=== PATIENT | male | born 1960 | race Caucasian/White ===

== ENCOUNTER 2020-05-08 00:31 | Inpatient (IN) | payer SELFPAY ==
[2020-05-08] VITALS (18 sets, daily range): BP systolic 56–181; BP diastolic 41–119; PULSE 74–115; RESP 13–48; TEMP 35.8–38.4; O2SAT 65–100; BMI 25.5; BMI 25.4
[2020-05-08] MEDS: Sodium Bicarbonate 8.4% 50 ML Syringe 50 MEQ IV (00:35)
[2020-05-08] MEDS: 0.9% Normal Saline 1,000 ML 1000 ML IV (00:40)
[2020-05-08] MEDS: Norepinephrine 8 mg/250 mL 0.9% NS 9.4 MG CONT INF (00:42)
--- NOTE | 2020-05-08 00:54 | CT_ITS ---
We are attempting to reach an attending provider to discuss findings. An addendum with communication details will be sent when the communication is complete. HISTORY: WITNESSED CARDIAC ARREST, NO CPR FOR 10 MINS UNTIL PD ARRIVAL, NO MEDICAL HX, STEMI CALLED IN ED Technique:CT Head or Brain W/O Contrast Injection Number of Images including paperwork:256 Comparison: None available. Findings: CT images of the head were obtained without contrast. There is loss of danielle-white differentiation suggestive of diffuse global edema including in the cerebellum.. Gas is present within the subcutaneous tissues. This is at the skull base, around the left temporomandibular joint, the left masseter muscle, and even deep to the frontal skin superficial to the frontal sinuses. Fluid is present with in the ethmoid air cells on the right frontal sinus.. The brain is atrophic. Calcific ASCVD involves intracranial arteries. No acute intracranial hemorrhage. No acute abnormality of orbits. Middle ear cavities and mastoid air cells are well aerated. Skull is normal. CT/Brain/Head without Contrast IMPRESSION: Edema throughout the brain, both the cerebrum and the cerebellum suggestive of global prolonged ischemia Individualized dose optimization techniques were used for this CT. at 0141 Reported and signed by: Dejon Payne MD Electronically Signed: Dejon Payne MD at 1:40 EDT Tel , Service support ,
--- NOTE | 2020-05-08 00:54 | RAD_ITS ---
STUDY: X-RAY CHEST REASON FOR EXAM: Male, 59 years old. Endotracheal tube and orogastric tube placement., Unresponsive, STEMI. TECHNIQUE: AP portable chest. COMPARISON: None. FINDINGS: Enteric tube tip below left hemidiaphragm at the junction of the gastric cardia and gastric fundus. Consider advancing tube 5 to 7 cm for placement of the gastric fundus. Endotracheal tube tip 6.4 cm above the margarita. cloth laminating supervisor overlies right lung apex. Mild bilateral upper lobe patchy opacities. Blunting of left costophrenic angle compatible with pleural scar versus a small pleural effusion. No pneumothorax. There is borderline cardiomegaly. Normal mediastinum and enedelia. Normal visualized pulmonary arteries. Normal visualized aortic arch and descending thoracic aorta. Normal visualized thoracic spine. Normal visualized ribs, clavicles, and shoulders. There is no demonstrated abnormality of the visualized soft tissue structures of the upper abdomen. RAD/Chest 1 View (Portable) IMPRESSION: Endotracheal tube tip in the expected location. Enteric tube tip at the junction of the gastric cardia and fundus. Consider advancing tube 5 to 7 cm for placement in the gastric fundus as desired. Upper lobe opacities suggestive of pneumonia or mild vascular congestion. Small left pleural effusion versus pleural scar. Electronically Signed: Austin Lee MD at 1:39 EDT , Service support ,
--- NOTE | 2020-05-08 00:54 | EKG12_ITS ---
Test Reason : CPR Blood Pressure : / mmHG Vent. Rate : 088 BPM Atrial Rate : 094 BPM P-R Int : 000 ms QRS Dur : 162 ms QT Int : 420 ms P-R-T Axes : 000 107 017 degrees QTc Int : 508 ms Wide Complex Rhythm Right bundle branch block ST elevation consider inferior injury or acute infarct Consider right ventricular involvement in acute inferior infarct Abnormal ECG Confirmed by ARCELIA MCKINLEY ([id number]), associate entertainment editor YAMILET MONTE ([id number]) on 05/09/2020 11:44:21 AM Referred By: AGUSTÍN Confirmed By:ARCELIA MCKINLEY
--- NOTE | 2020-05-08 00:59 | ED.VIS.GEN ---
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 Patient was found unresponsive by his . She immediately called 911 but did not perform bystander CPR. When police arrived patient was found to be in V. fib. He was shocked twice. He eventually went into PEA with bradycardia. Patient had [place] but then eventually bradycardia down and had PEA again. Patient received a total of 4 doses of epinephrine and a left humeral IO was placed in field. When patient arrived patient is in a wide-complex sinus rhythm. I gel is in place. He has no purposeful movements. reports that tonight was a normal evening. They went to bed around 10:00. He was working on his boat. Patient was in bed when heard him breathing funny which caused him to check on him. It sound like patient was having agonal respirations. That is when she called 911. does state that patient said that if his heart were to stop he would want to be brought back. states that should his heart start again he would she would not like further CPR. Past Medical History - Allergies and Home Meds Allergies/Adverse Reactions: Allergies No Known Allergies Allergy (Verified 05/08/20 00:56) Past Medical History: None Surgical History: no surgical history Lives: Spouse/ Significant Other, With Family Smoking Status: Current every day smoker Alcohol: None Drugs: None - Family History Maternal Family History: Reports: Heart Disease Paternal Family History: Reports: Heart Disease Review of Systems ROS: Unable to Obtain Physical Exam Vital Signs/Narrative: Vital Signs Temp Pulse Resp BP Pulse Ox 05/08/20 00:50 148/99 H 05/08/20 00:48 56/41 L 05/08/20 00:42 96.5 F L 74 14 105/61 100 05/08/20 00:37 90 105/61 05/08/20 00:33 96.5 F L 96 13 99 Inital Vital Signs reviewed: Yes General: Well nourished, Well developed, No Acute Distress Head: Normocephalic, Atraumatic Eyes: - - Pupils mid fixed and dilated ENT: Moist mucous membranes, No rhinorrhea Neck: Supple, Nontender Cardiovascular: Regular rate, Regular rhythm, No murmurs Respiratory: CTA bilaterally, Chest nontender, - - No spontaneous respirations. Bilateral breath sounds with bagging. Abdomen: Soft, Nondistended, Normal bowel sounds, No masses Back: Nontender, Normal Inspection Extremities: Nontender, No edema Skin: Normal color, No rash Neurological: Coma, - - Patient is obtunded with no purposeful movements. GCS was 3 Diagnostic/Tx/Re-eval Chest X-Ray - ED: 1 View, Read by ED Physician, Read by Radiologist Clinical Impression(s) from Imaging Studies Brain CT 05/08/20 00:54 IMPRESSION: Edema throughout the brain, both the cerebrum and the cerebellum suggestive of global prolonged ischemia Individualized dose optimization techniques were used for this CT. at 0141 Reported and signed by: Dejon Payne MD Electronically Signed: Dejon Payne MD at 1:40 EDT Tel , Service support , ADDENDUM: 05/08/20 0152 IMPRESSION: Edema throughout the brain, both the cerebrum and the cerebellum suggestive of global prolonged ischemia Individualized dose optimization techniques were used for this CT. at 0141 Reported and signed by: Dejon Payne MD N.B. : The above information has been verbally conveyed by Dejon Payne MD to Dr. Melanie Villanueva MD, on 05/08/2020 01:45:02 (ET). Electronically Signed: Dejon Payne MD at 1:40 EDT Tel , Service support , Chest X-Ray 05/08/20 00:54 IMPRESSION: Endotracheal tube tip in the expected location. Enteric tube tip at the junction of the gastric cardia and fundus. Consider advancing tube 5 to 7 cm for placement in the gastric fundus as desired. Upper lobe opacities suggestive of pneumonia or mild vascular congestion. Small left pleural effusion versus pleural scar. Electronically Signed: Austin Lee MD at 1:39 EDT , Service support , Laboratory Data 05/08/20 05/08/20 05/08/20 00:30 00:30 00:30 WBC 13.2 H RBC 4.30 L Hgb 13.2 Hct 44.8 MCV 104.2 H MCH 30.7 MCHC 29.5 L RDW Std Deviation 48.0 H RDW Coeff of Vee 12.4 Plt Count 186 MPV 8.8 Neut % (Auto) Not Reportable Absolute Neuts (auto) 4.2 Absolute Lymphs (auto) 7.65 H Neutrophils % (Manual) 24 L Band Neutrophils % 8 H Lymphocytes % (Manual) 58 H Monocytes % (Manual) 5 Eosinophils % (Manual) 1 Metamyelocytes % 3 H Myelocytes % 1 H Diff Path Review May foll Atypical Lymphocytes 2+ Platelet Estimate ADEQUATE RBC Morphology NORM C+C PT 17.5 H INR 1.5 APTT 57.4 H Sodium 142 Potassium 3.5 Chloride 108 H Carbon Dioxide 21.0 Anion Gap 13 BUN 11 Creatinine 1.69 H Estim Creat Clear Calc 47.39 Est GFR (MDRD) Af Amer 53 L Est GFR (MDRD) Non-Af 44 L BUN/Creatinine Ratio 6.5 L Glucose 348 H Lactic Acid Calcium 7.6 L Total Bilirubin 0.20 AST 109 H ALT 76 H Alkaline Phosphatase 91 Troponin I 1.670 H* Total Protein 5.5 L Albumin 2.6 L Globulin 2.9 Albumin/Globulin Ratio 0.9 Urine Color Urine Clarity Urine pH Ur Specific [place] Urine Protein Urine Glucose (UA) Urine Ketones Urine Occult Blood Urine Nitrite Urine Bilirubin Urine Urobilinogen Ur Leukocyte Esterase Urine RBC Urine WBC Ur Squamous Epith Cells Amorphous Sediment Urine Bacteria Urine Mucus 05/08/20 05/08/20 00:30 00:45 WBC RBC Hgb Hct MCV MCH MCHC RDW Std Deviation RDW Coeff of Vee Plt Count MPV Neut % (Auto) Absolute Neuts (auto) Absolute Lymphs (auto) Neutrophils % (Manual) Band Neutrophils % Lymphocytes % (Manual) Monocytes % (Manual) Eosinophils % (Manual) Metamyelocytes % Myelocytes % Diff Path Review Atypical Lymphocytes Platelet Estimate RBC Morphology PT INR APTT Sodium Potassium Chloride Carbon Dioxide Anion Gap BUN Creatinine Estim Creat Clear Calc Est GFR (MDRD) Af Amer Est GFR (MDRD) Non-Af BUN/Creatinine Ratio Glucose Lactic Acid 10.3 H* Calcium Total Bilirubin AST ALT Alkaline Phosphatase Troponin I Total Protein Albumin Globulin Albumin/Globulin Ratio Urine Color Yellow Urine Clarity Sl. Cloudy Urine pH 5.0 Ur Specific [place] 1.025 Urine Protein 15 H Urine Glucose (UA) Normal Urine Ketones 5 H Urine Occult Blood 150 H Urine Nitrite Negative Urine Bilirubin Negative Urine Urobilinogen Normal Ur Leukocyte Esterase 25 H Urine RBC 10-25 SEEN Urine WBC 10-25 SEEN Ur Squamous Epith Cells 0 SEEN Amorphous Sediment 2+ Urine Bacteria 0 SEEN Urine Mucus 0 SEEN - Rhythm Strip Rhythm Strip: Sinus Rhythm Rate: 88 Ectopy: None - EKG Initial EKG Interpretation: Junctional - , Junctional rhythm at a rate of 88 ST elevations in inferior leads with reciprocal changes in the precordial leads consistent with a STEMI QRS 162 QTc 508, - Prior: Changed - Medical Decision Making Patient arrives after cardiac arrest with prolonged downtime. Patient had approximately 10 minutes of downtime from when the noticed that he was not breathing without CPR. Patient then had about 30 minutes of ACLS with intermittent [place] prior to arrival. On arrival patient is an junctional/sinus rhythm. EKG does show a STEMI. STEMI is called and case is discussed with cardiology on-call, Dr. Pitts. EKGs are reviewed. Given patient's prolonged downtime as well as poor neurologic exam right now the concern is that patient has anoxic brain injury and would not recover. Based on this, cardiology would not like to activate the Senior Integration Developer. Recommendation is for head CT and if that is negative, IV heparin and aspirin. Patient is intubated for airway management. On arrival patient does have intermittent hypotensive and bradycardia that requires a push dose of epinephrine. He received 2 0.1 mg doses of push dose epinephrine. Patient responded well to this. He started on a Levophed drip peripherally. Troponin is elevated consistent with ACS. Patient is a significantly elevated lactic acid which is consistent with a likely prolonged ischemia. CT of the brain shows global edema highly consistent with anoxic brain injury. Discussed at length with the patient's and children likely prognosis. They state he would never want a be like this and would like to terminally extubate. Given the patient's very poor prognosis I think this is a very reasonable course of action. Patient is terminally extubated in the emergency room. Levophed is turned off. Patient does have hypoxia after this but continues to have heart rate and pulse. He does not have any purposeful movements. He continues to have a GCS of 3. Patient is monitored for some time and eventually hospice is consulted. They evaluate him in the ER. They agree that he is very appropriate for hospice care but worried that he is too unstable and might in route to inpatient hospice. They would request that he be admitted to the hospital service. Discussed with hospitalist who is agreeable to this. Throughout this process patient is given aliquots of morphine as well as a dose of Robinol for comfort. Prior to going upstairs patient is also given Ativan. Family is aware that despite patient having spontaneous heart rate and sonorous respirations, his potential for any neurologic improvement is incredibly unlikely. They repeatedly state that he would not want a live this way and that is why they have made the decision to continue through with palliative care. - Critical Care Time Critical care time (excluding procedures): 75-104 minutes, Discussing w/Patient &/or Family/Bobcat Driver/Labor, Discussing w/Consultants, Performing Direct Patient Care at Bedside - Patient arrives status post cardiac arrest. He is found to have a STEMI. STEMI alert is called and after discussion at length with cardiology, patient felt not to be a candidate of the Senior Integration Developer due to likely poor neurologic outcomes. 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 He is terminally extubated. Patient does not and I then have to consult hospice care as well as discussed with hospitalist. Patient is ultimately admitted to the hospital service. Procedures Procedure(s): Intubation. Patient preoxygenated with I gel. He had no gag reflex. No medication needed. 4-[address] an 8-0 ET tube with direct visualization. 24 cm at the lip. Patient had no desaturations. Patient of bilateral breath sounds as well as color change with end-tidal CO2. No complications. Chest x-ray confirms placement. ED Disposition - Plan for ED Patient: Disposition: Acute Care Hospital [facility] Diagnosis: Cardiac arrest, STEMI (ST elevation myocardial infarction), Anoxic brain injury
[2020-05-08] MEDS: 0.9% Normal Saline 1,000 ML 999 ML IV (01:00)
[2020-05-08 01:01] LABS: Hematocrit 44.8 % (40-54); Hemoglobin 13.2 g/dL (13.0-16.5); Mean Corp Hgb Conc 29.5 g/dL (32-36); Mean Corpuscular Hgb 30.7 pg (27.0-32.0); Mean Corpuscular Volume 104.2 fL (80-94); Mean Platelet Vol. 8.8 fl (6.2-12.0); POSITIVE COUNT YES; POSITIVE DIFFERENTIAL YES; POSITIVE MORPHOLOGY YES; Platelet Count 186 K/mm3 (150-450); RBC Distribution Width CV 12.4 % (11.6-14.6); White Blood Count 13.2 K/mm3 (4.4-11.0)
[2020-05-08 01:02] LABS: Bacteria 0 SEEN /hpf (None Seen); Mucous, Urine 0 SEEN /hpf (<or=2+); Squamous Epithelial Cells - UA 0 SEEN /hpf (0-5)
[2020-05-08 01:03] LABS: Color, Urine Yellow (Yellow); Glucose, Dipstick Normal (Normal); Ketone-Dipstick 5 mg/dl (Negative); Leukocyte Esterase-Dipstick 25 /ul (Negative); Nitrite-Dipstick Negative (Negative); Occult Blood-Urine 150 /ul (Negative); Protein-Dipstick 15 mg/dl (Negative); Specific Gravity, Urine 1.025 (1.002-1.030); Urine Bilirubin Dipstick Negative (Negative); Urine Clarity Sl. Cloudy (Clear); Urine Urobilinogen Normal (Normal)
[2020-05-08 01:05] LABS: Differential Indicated MANUAL DIFF
[2020-05-08 01:10] LABS: International Normalized Ratio 1.5; Prothrombin Time (Protime)PT. 17.5 SECONDS (11.7-14.9)
[2020-05-08 01:11] LABS: Partial Thromboplast Time 57.4 Seconds (24.1-36.2)
[2020-05-08 01:16] LABS: Amorphous Sediment 2+; Red Blood Cells-Urine 10-25 SEEN /hpf (0-5); White Blood Cells 10-25 SEEN /hpf (0-5)
--- NOTE | 2020-05-08 01:17 | HP.PCM_ITS ---
Problem List (1) Cardiac arrest Status: Acute (2) STEMI (ST elevation myocardial infarction) Status: Acute History of Present Illness Date of Admission: 05/08/20 Chief Complaint: cardiac arrest The patient is a 59 year old M with no known medical history who presented to the emergency department with cardiac arrest. Reportedly patient had agonal breathing while sleeping on his bed. He was unresponsive. His shook him but patient continued to be unresponsive. Reportedly patient was in cardiac arrest. CPR with defibrillation and epinephrine was given at the field. Patient was emergently intubated at emergency department. ILENE SHERMAN was called at emergency department. Patient was found to be in ST elevation at the emergency department. History was taken from patient's and family since patient is comatose. Past Medical History Medical History: Medical History (Last Updated 05/08/20 @ 01:[address] Srinath Rubio MD) Denies any medical history (Acute) Allergies No Known Allergies Allergy (Verified 05/08/20 00:56) Home Medications: Ambulatory Orders Medication Instructions Recorded NK 05/08/20 Surgical History: - - Back surgery Lives: Spouse/ Significant Other, With Family Smoking Status: Current every day smoker Tobacco Use: Cigarettes Alcohol: None Drugs: None - *Family History Maternal History Items: Heart Disease Paternal History Items: Heart Disease Review of Systems Constitutional: Denies: Chills, Fever, Weight Change HEENT: Denies: Head Aches, Sinus Congestion, Sinus Drainage Cardiovascular: Denies: Chest Pain, Palpitations Respiratory: Denies: Cough, Shortness of breath at rest, Sputum production Gastrointestinal: Denies: Abdominal Pain, Nausea, Vomiting Genitourinary: Denies: Dysuria Musculoskeletal: Denies: Joint Pain, Joint Tenderness Skin: Denies: Rash, Wounds Neurological: Denies: Numbness, Tingling, Focal weakness Psychiatric: Denies: Anxiety, Depression, Homicidal Ideations, Suicidal Ideations Hematologic/ Lymphatic: Denies: Easy Bruising, Easy Bleeding VTE Information - Inpt Only VTE Present on Admission: No VTE Mechan Device Prophylaxis: SCD's VTE Pharm Prophylaxis ordered?: No Patient Problems: Active and Suspected Problems (Last Updated 05/08/20 @ 01:[address] Srinath Rubio MD) Cardiac arrest (Acute) STEMI (ST elevation myocardial infarction) (Acute) Denies any medical history (Acute) - Physical Exam Vitals/I&O's: Vital Signs Temp Pulse Resp BP Pulse Ox 96.5 F L 74 14 148/99 H 100 05/08/20 00:42 05/08/20 00:42 05/08/20 00:42 05/08/20 00:50 05/08/20 00:42 Oxygen Delivery Method Ambu-Bag Weight: 80.7 kg Body Mass Index (BMI) 25.5 Intake and Output for Last 24 Hours 05/06/20 05/07/20 05/08/20 23:59 23:59 23:59 Intake Total 0.94 / 0.94 Balance 0.94 / 0.94 General: - - Comatose HEENT: Atraumatic, Normocephalic, - - Fixed pupils; not reactive to light. Neck: Trachea Midline, - - ET tube in throat. Lungs: No wheeze, - - Ventilator respiration. Cardiovascular: Tachycardic, - - Diminished breath sounds Abdomen: Bowel Sounds Present, Soft Extremities: No edema, Peripheral Pulses Normal Skin: No rashes, No breakdown Musculoskeletal: No Muscle Wasting Neurological: - - Comatose; gag reflex present. Fixed and dilated pupils. Psych/Mental Status: - - Comatose Laboratory Results 05/08/20 00:30: WBC 13.2 H, RBC 4.30 L, Hgb 13.2, Hct 44.8, MCV 104.2 H, MCH 30.7, MCHC 29.5 L, RDW Std Deviation 48.0 H, RDW Coeff of Vee 12.4, Plt Count 186, MPV 8.8, Neut % (Auto) Not Reportable, Absolute Neuts (auto) Pending 05/08/20 00:30: Sodium Pending, Potassium Pending, Chloride Pending, Carbon Dioxide Pending, Anion Gap Pending, BUN Pending, Creatinine Pending, Est GFR (MDRD) Af Amer Pending, Est GFR (MDRD) Non-Af Pending, BUN/Creatinine Ratio Pending, Glucose Pending, Calcium Pending, Total Bilirubin Pending, AST Pending, ALT Pending, Alkaline Phosphatase Pending, Troponin I Pending, Total Protein Pending, Albumin Pending 05/08/20 00:30: PT 17.5 H, INR 1.5, APTT 57.4 H 05/08/20 00:30: Lactic Acid Pending 05/08/20 00:45: Urine Color Yellow, Urine Clarity Sl. Cloudy, Urine pH 5.0, Ur Specific [place] 1.025, Urine Protein 15 H, Urine Glucose (UA) Normal, Urine Ketones 5 H, Urine Occult Blood 150 H, Urine Nitrite Negative, Urine Bilirubin Negative, Urine Urobilinogen Normal, Ur Leukocyte Esterase 25 H, Urine RBC 10-25 SEEN, Urine WBC 10-25 SEEN, Ur Squamous Epith Cells 0 SEEN, Amorphous Sediment 2+, Urine Bacteria 0 SEEN, Urine Mucus 0 SEEN Current Medications Norepinephrine Bitartrate 8 mg (/ Sodium Chloride) 250 mls @ 9.375 mls/hr CONT INF .[id number] SAVANNAH; Protocol Last Titration: 05/08/20 00:48 Dose: 10 mcg/min, 18.8 mls/hr Documented by: Sodium Chloride () 1,000 mls @ 1,000 mls/hr IV .Q1H ONE Stop: 05/08/20 01:53 Last Admin: 05/08/20 00:40 Dose: 1,000 mls/hr Documented by: Assessment/Plan All Active Problems (Last Updated 05/08/20 @ 01:[address] Srinath Rubio MD) Cardiac arrest (Acute) STEMI (ST elevation myocardial infarction) (Acute) Denies any medical history (Acute) The patient is a 59 year old M with no known medical history who presented to the emergency department with cardiac arrest ST elevation [place]. Cardiac arrest and STEMI Emergent department doctor discussed the case with a web services manager. Emergency department doctor reported that PER cardiology recommendation patient will not be taken to cardiac cath at this time. Plans to get a head CT and if there is no head bleed patient be started on aspirin and heparin drip and will be admitted to the intensive care unit. Inpatient cardiology consultation and wastewater plant operator consultation placed Serial cardiac enzymes ordered. Check magnesium and phosphorus. Check lipid panel. Lipitor ordered. Follow liver enzymes. Check A1c. Placed on vent at emergency department. Patient will remain on the vent. However per family the patient will now wants repeat CPR and re-intubation if extubated. Pepcid for GI prophylaxis. Continue Levophed. Tobacco abuse Complicates care. If patient is able to make it consider tobacco cessation. DVT prophylaxis SCD for now. If CT head is unremarkable will start patient on heparin drip for elevation [place]. Inpatient E&M: [id number] Init Hosp L3
[2020-05-08 01:40] LABS: ALB/GLOB Ratio 0.9 RATIO (0.9-2.4); AST(SGOT) 109 U/L (15-37); Alanine Aminotransfer ALT/SGPT 76 U/L (16-61); Albumin, Serum 2.6 g/dL (3.2-5.0); Alkaline Phosphatase 91 U/L (45-117); Anion Gap 13 (5-15); BUN 11 mg/dL (7-18); BUN/Creat Ratio 6.5 RATIO (10-20); Calcium,Total 7.6 mg/dL (8.5-10.1); Chloride 108 mmol/L (98-107); Creatinine, Serum 1.69 mg/dL (0.70-1.30); EST Glomerular Filtration Rate 44 mL/min (>60); Est Glom Filt Rate - Afr Amer 53 mL/min (>60); Estimated Creatinine Clearance 47.39 ml/min; Globulin 2.9 g/dL (2.2-4.2); Glucose 348 mg/dL (74-106); Lactic Acid 10.3 mmol/L (0.4-1.9); Potassium 3.5 mmol/L (3.5-5.1); Protein, Total 5.5 g/dL (6.4-8.2); Sodium Level 142 mmol/L (136-145)
--- NOTE | 2020-05-08 01:52 | ED.RN ---
MD administered 0.1 mg of IV epinephrine at 0036 and 0046.
--- NOTE | 2020-05-08 01:53 | ED.RN ---
talking with family members in room. explaining the events, test results and options. Support provided.
[2020-05-08 02:00] LABS: Eosinophil 1 % (0-5); Lymphocyte 58 % (19-41); Metamyelocyte 3 % (0-1); Monocyte 5 % (0-10); Myelocyte 1 (0-0); Neutrophil-Band 8 % (0-5); Neutrophil-Segmented 24 % (47-70)
[2020-05-08 02:04] LABS: Atypical Lymphocyte 2+ %; Platelet Estimate ADEQUATE (ADEQ)
[2020-05-08 02:05] LABS: Red Cell Morphology NORM C+C NORMAL (NORM C&C)
[2020-05-08 02:07] LABS: Absolute Neutrophil Count 4.2 X10^3/uL (2.0-7.7)
[2020-05-08 02:08] LABS: Absolute Lymphocyte Count 7.65 X10^3/uL (0.83-4.51); Lymphocyte # 7.65 X10^3/ul (4.0)
[2020-05-08] MEDS: Morphine 2 MG/ML Syringe IV ×2 (02:33→03:50)
--- NOTE | 2020-05-08 02:42 | ED.RN ---
pt extubated at 0240 by Rubia respiratory therapist. Spoke with MD for order for Robinul for secretions. Pharmacy will be sending up stat.
--- NOTE | 2020-05-08 02:45 | CPS ---
pt terminally extubated at [address]anueva's order
[2020-05-08] MEDS: Glycopyrrolate 0.2 MG/ML Vial 0.1 MG IV (02:48)
[2020-05-08 03:48] LABS: Cholesterol 127 mg/dL (200); High Density Lipoprotein 31 mg/dL; Phosphorus 10.1 mg/dL (2.5-4.9); Triglycerides 135 mg/dL; Very Low Density Lipoprotein 27 mg/dL (5-40)
[2020-05-08] MEDS: Morphine 4 MG/ML Syringe IV ×2 (04:33→06:49)
[2020-05-08 04:56] LABS: Reflex Lactate? Y
[2020-05-08] MEDS: LORazepam 2 MG/ML Syringe 0.5 MG IV (06:59)
[2020-05-08 07:09] LABS: Hemoglobin A1c 5.5 % (3.8-5.6)
[2020-05-08] MEDS: LORazepam 2 MG/ML Syringe IV ×2 (09:05→13:08)
[2020-05-08] MEDS: Atropine Sulfate 1% 2 ml Bottle 4 DRP PO ×2 (09:06→11:52)
[2020-05-08] MEDS: morphine 10 MG/ML Syringe 6 MG IV ×2 (09:07→11:13)
--- NOTE | 2020-05-08 09:28 | CASEMGMT ---
Social Work Note Pt terminally extubated this morning. SW in to speak with pt's family. Pt's present in room. SW introduced self and role at [facility]. SW provided support. SW informed pt's that if she needs any additional support or resources to let staff know and this worker can return. SW to remain available for support if needed. Saloni Suárez CLASP MACHINE OPERATOR, FOAM RUBBER CURER
[2020-05-08] MEDS: 0.9% Saline Lock 10 ML Syringe IV ×2 (11:13→13:08)
[2020-05-08] MEDS: Acetaminophen 650 MG Suppository RECTAL (12:56)
--- NOTE | 2020-05-08 14:35 | NURSING ---
Pt 1434 this date confirmed with two RNs, this nurse and Emili RN. Family at bedside. updated. See chart for paperwork.
--- NOTE | 2020-05-08 15:09 | NURSING ---
[facility] was called to provide patient information, they requested we call them back when the family has left. family stepped out for a time but said they would be back. called [facility] to notify them that family was away from bedside but would return as they seemed to want to stay with patient until the home was present. also verified that we could remove peripheral IV sites.
--- NOTE | 2020-05-08 15:57 | PCM.DEATH ---
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 Srinath Rubio MD) Cardiac arrest (Acute) STEMI (ST elevation myocardial infarction) (Acute) Anoxic brain injury (Acute) Denies any medical history (Acute) Hospital Course This 59-year-old white male was brought into the emergency room at [facility] by squad after his found him in there bed with agonal respirations after he had gone to bed approximately 10 PM on 05/07/2020. She called 911, she did not institute any CPR, when police arrived the patient was found to be in V. fib, he was shocked twice but eventually went into PEA with bradycardia. Patient was given multiple doses of epinephrine and a left humeral interosseous IV was placed in the field. When the patient arrived in the emergency room at [facility], he was noted to be in a wide-complex sinus rhythm, he had no purposeful movements. Work-up in the emergency room included an EKG which showed a wide complex rhythm-this was initially felt to also show a STEMI pattern in the inferior wall leads however, I talked with cardiology today and they felt that the patient did not have a STEMI. Labs showed an elevated troponin, there is also a significantly elevated lactic acid. CT of the brain was performed which showed evidence of edema throughout the brain in both the cerebrum and cerebellum suggestive of global prolonged ischemia. Conversations were carried out with the patient's family in the emergency room and family requested the patient be terminally extubated. Discussions were carried out with hospice but due to the fact the patient was felt to be unstable and likely to quickly, it was felt that hospice was not appropriate. Patient was admitted to [facility], I had discussions with the patient's family who were in the room and morphine IV and Ativan IV was administered for patient comfort. On 05/08/2020, patient was seen and examined-at 1435 the patient was noted to have no respirations, no heart rate, and did not respond to any stimuli. Patient was pronounced at that time, family did not request an autopsy to be performed. It was felt that the cause of the patient's was anoxic brain injury from prolonged hypoxia due to a cardiac arrhythmia. OBSV E&M: [id number] Observ/hosp same date L3
--- NOTE | 2020-05-08 15:58 | NURSING ---
patient received 0ml of IV fluids in the last hour of life.
[2020-05-09 10:26] LABS: Pathologist Review Reviewed
== END 2020-05-08 17:38 | DRG 309 ==
LOC: ED 00:54 → ICU 02:56 → MS3 06:59
PROVIDERS: Admitting Provider Hospitalist; Emergency Provider Emergency Medicine; Visit Provider Internal Medicine
DX: I49.9 Cardiac arrhythmia, unspecified (principal); G93.1 Anoxic brain damage, not elsewhere classified; I46.2 Cardiac arrest due to underlying cardiac condition; R40.2430 Glasgow coma scale score 3-8, unspecified time; F17.210 Nicotine dependence, cigarettes, uncomplicated
CPT/HCPCS: 31500; 51702; 70450; 71045; 80053; 80061; 81001; 83036; 83605; 83735; 84100; 84484; 85025; 85610; 85730; 92950; 93005; 94002; 99285; J7030; J7050; A4216